=== PATIENT | female | born 1955 | race Caucasian/White ===

== ENCOUNTER 2024-07-01 19:20 | Emergency (ER) | payer MEDICARE, SELFPAY ==
[2024-07-01 19:22] VITALS: BP 142/72; PULSE 92; RESP 18; TEMP 36.1; O2SAT 95; BMI 28.5
[2024-07-01] MEDS: Diphth,Pertuss(Acell),Tet Vac 0.5 ML Vial IM (19:43)
[2024-07-01] MEDS: Lidocaine 1% (20 ml mdv) 20 ML Vial 10 ML INFILT (19:43)
--- NOTE | 2024-07-01 19:50 | RAD_ITS ---
PROCEDURE: HAND MIN 3 VIEWS 07/01/2024 REASON FOR EXAM: CRUSH INJURY, LACERATIONS; LACERATION TECHNIQUE: Three-view examination of each hand COMPARISON: None FINDINGS: No evidence of fracture. No foreign body. Soft tissue swelling is seen compatible with the patient's history of laceration. Please note ligamentous injury not excluded. RAD/Hand Min 3 Views IMPRESSION: No fracture or foreign body. If concern for ligamentous pathology, consider MR I Reading Location: [id number]
--- NOTE | 2024-07-01 19:50 | RAD_ITS ---
PROCEDURE: HAND MIN 3 VIEWS 07/01/2024 REASON FOR EXAM: CRUSH INJURY, LACERATIONS; LACERATION TECHNIQUE: Three-view examination of each hand COMPARISON: None FINDINGS: No evidence of fracture. No foreign body. Soft tissue swelling is seen compatible with the patient's history of laceration. Please note ligamentous injury not excluded. RAD/Hand Min 3 Views IMPRESSION: No fracture or foreign body. If concern for ligamentous pathology, consider MR I Reading Location: [id number]
--- NOTE | 2024-07-01 19:59 | EX.ED.GENINJ ---
HPI <Dr. Db Chiang DO - Last Filed: 07/02/24 00:32> History of Present Illness Chief Complaint: Laceration <DEJUAN Cheung - Last Filed: 07/01/24 21:42> Narrative Narrative: Patient presenting today due to multiple lacerations to her bilateral hands after she was taking a plastic trash bin outside to the curb when it fell backwards and landed on her hands, causing multiple finger lacerations. Her tetanus is not up-to-date. She denies any other injury. She is not on any blood thinners. She is right-handed. [facility], [facility] <Dr. Db Chiang DO - Last Filed: 07/02/24 00:32> [facility] Medical History High blood cholesterol Hypertension Home Medications ?Medication ?Instructions ?Recorded ?Last Taken ?Type cephalexin 500 mg capsule 500 mg PO TID 5 days #15 caps 07/01/24 Unknown Rx Allergy/AdvReac Type Severity Reaction Status Date / Time No Known Allergies Allergy Verified 07/01/24 19:21 Family History no significant family his Surgical History no surgical history Social History Smoking Status: Never smoker ROS <DEJUAN Cheung - Last Filed: 07/01/24 21:42> ROS ED Constitutional Constitutional ED: Denies chills or fever(s) Cardiovascular Cardiovascular: Denies chest pain Respiratory/Chest Respiratory/Chest: Denies dyspnea Musculoskeletal Musculoskeletal: Reports arthralgias Integumentary Reports laceration Neurologic Neurologic: Denies paresthesias EXAM <Dr. Db Chiang DO - Last Filed: 07/02/24 00:32> Physical Exam Const Vital Signs: 07/01/24 19:22 07/01/24 21:21 07/01/24 21:35 Temperature 97 F L 97 F L Temperature Source Temporal Pulse Rate 92 68 68 Respiratory Rate 18 16 16 Blood Pressure 142/72 H 142/72 H Blood Pressure Mean 95 95 Pulse Ox 95 98 98 Oxygen Delivery Method Room Air <DEJUAN Cheung Last Filed: 07/01/24 21:42> Physical Exam Const Vital Signs: 07/01/24 19:22 07/01/24 21:21 07/01/24 21:35 Temperature 97 F L 97 F L Temperature Source Temporal Pulse Rate 92 68 68 Respiratory Rate 18 16 16 Blood Pressure 142/72 H 142/72 H Blood Pressure Mean 95 95 Pulse Ox 95 98 98 Oxygen Delivery Method Room Air Positive well nourished, well developed and no apparent distress General Appearance ED: well developed HEENT Reports normocephalic and head/scalp atraumatic Mouth ED: Yes moist mucous membranes normal Eyes PERRL and EOMs intact bilaterally Neck full ROM and supple Chest Wall inspection of chest normal Resp normal respiratory effort and clear to auscultation bilaterally Cardio regular rate and regular rhythm Back/Spine normal ROM and normal to inspection Extremity normal to inspection and full ROM Extremity Narrative: 1.5 cm linear laceration to the right third dorsal finger at the level of the PIP joint, full flexion and extension of all 5 fingers of the right hand, bilateral radial pulse 2+, good cap refill, sensation intact to all digits of the bilateral hands. 2 cm full-thickness linear laceration to the left second digit, 1.5 cm full-thickness linear laceration to the left third digit third, and 0.5 cm full-thickness linear laceration to the left fourth digit, all of these lacerations are dorsal at the level of the PIP joint. There is a complete tendon laceration at the left second and third fingers, she is able to flex these fingers but not extend. Patient has abrasions to the left dorsal pinky and thumb as well as right thumb and index finger. Neuro oriented x3, CN's II-XII intact bilaterally, moves all extremities, no focal motor deficits and no sensory deficits noted Sensorium / Orientation: awake and alert Psych mental status grossly normal and thought process normal Skin Skin Narrative: See above. Otherwise no wounds or rashes noted PROC <DEJUAN Cheung - Last Filed: 07/01/24 21:42> Procedures Lacerations Laceration: Depth: Tendon Shape: Linear Prep: Chlorhexadine Laceration repair: Irrigated, Lidocaine and - (Digital block) Number of Sutures/Abad: 15 Suture Information: Simple and 4-0 Comment: Laceration anesthetized with 1% lidocaine, digital blocks performed to the right third finger and left second, third, and fourth digits. All wounds were copiously irrigated with saline and cleaned with chlorhexidine. Right third finger 1.5 cm linear laceration received three 4-0 Ethilon sutures. Left second finger has a 2 cm linear laceration that received six 4-0 Ethilon sutures, left third finger has a 1.5 cm laceration that received five 4-0 Ethilon sutures, left fourth finger has a 0.5 cm linear laceration that received one 4-0 Ethilon suture [facility] <Dr. Db Chiang, DO - Last Filed: 07/02/24 00:32> [facility] Radiography Diagnostic Testing: Clinical Impression(s) from Imaging Studies Hand X-Ray 07/01/24 19:50 IMPRESSION: No fracture or foreign body. If concern for ligamentous pathology, consider MRI Reading Location: [facility] Hand X-Ray 07/01/24 19:50 IMPRESSION: No fracture or foreign body. If concern for ligamentous pathology, consider MRI Reading Location: [facility] Treatment and Re-Evaluation Narrative: I have personally performed a face to face assessment of the patient and have reviewed the ROMEO Note. I performed a substantive portion of the visit including all aspects of the following. My gaytan findings include: History: Patient presents with multiple lacerations to bilateral hands. Patient states she was carrying a trash can when the lid flew back and hit the dorsum of her hands. Patient has lacerations to the left second, third, and fourth proximal phalanges and right third proximal phalanx. Patient is unable to extend the PIP joint of her left index and long fingers. Patient denies any paresthesias. Patient is unsure of her tetanus. Exam: Vital signs are stable. Patient is afebrile. Patient is in no acute distress. There are lacerations over the dorsal aspect of the left second, third, and fourth proximal phalanges as well as the right third proximal phalanx. There is a tendon laceration of the extensor tendon that is visualized over the left second and third digits. There are no foreign bodies visualized. Otherwise strength is 5/5 in flexion and extension of the MP, PIP, and DIP joints. Sensation was intact to light touch in all digits. Capillary refill was less than 2 seconds in all digits. Medical Decision Making: Differential diagnosis includes laceration, contusion, open fracture, and retained foreign body. X-rays of the bilateral hands will be obtained to assess for fracture and retained foreign body. Patient was given a tetanus booster. Patient was given a dose of Ancef. The wounds were closed by the ROMEO under my supervision. Bacitracin dressing was applied. Patient was given referral for plastic hand surgery. Patient is instructed to call tomorrow for an appointment. Patient was given a prescription for Keflex. Patient understood and was agreeable with the plan. All questions were answered. <DEJUAN Cheung - Last Filed: 07/01/24 21:42> [facility] MDM Narrative Medical decision making narrative: Patient presenting with multiple finger lacerations to her bilateral hands after a trash can fell backwards and landed on her hands while she was taking it to the curb. She has multiple finger lacerations, see physical exam. Tetanus updated here. She does have complete extensor tendon laceration at the level of the PIP joint to the left second and third fingers, she is otherwise neurovascularly intact. She was given a dose of IV Ancef here. X-ray of the bilateral hands obtained to assess for fracture and foreign body and are negative. I did speak with Dr. Cuba, given she has no open fracture, she can follow-up in the office, recommended she call tomorrow. I will place her on a course of Keflex. Lacerations were copiously irrigated with saline and repaired with sutures, she tolerated procedure well. See procedure note. Wounds were bandaged with bacitracin ointment. Strict return instructions were discussed with her. Patient discharged home in stable condition. Radiography X-Ray: Read by ED Physician Diagnostic Testing: Clinical Impression(s) from Imaging Studies Hand X-Ray 07/01/24 19:50 IMPRESSION: No fracture or foreign body. If concern for ligamentous pathology, consider MRI Reading Location: [facility] Hand X-Ray 07/01/24 19:50 IMPRESSION: No fracture or foreign body. If concern for ligamentous pathology, consider MRI Reading Location: [facility] Discharge Plan Triage Chief Complaint: Laceration ED Midlevel Provider: Navya Spann ED Provider: Db Chiang Dx/Rx/DC Orders Clinical Impression: Crushing injury of hand, right, Crushing injury of hand, left, Finger laceration, Extensor tendon laceration, finger, open wound Instructions: ED Crush Injury, Hand, ED Laceration, Hand: All Closures Prescriptions: New cephalexin 500 mg capsule 500 mg PO TID 5 Days Qty: 15 0RF Primary Care Provider: PodlogarKeerthi NP Referrals: Nasir Cuba MD [Med Staff - Active Staff] - 1 Day Podlogar,Keerthi GILBERT, HR ADVISOR-C [Primary Care Provider] - Activity Restrictions/Additional Instructions: Please call Dr. Cuba's office tomorrow to set up a follow-up appointment. Return for any signs of infection Print Language: Serbian Disposition Disposition: Home, Self Care Discharge Date/Time: 07/01/24 21:36
[2024-07-01] MEDS: Cefazolin 2 GM in Syringe IV (21:18)
[2024-07-01 21:21] VITALS: PULSE 68; RESP 16; O2SAT 98
[2024-07-01 21:35] VITALS: BP 142/72; PULSE 68; RESP 16; TEMP 36.1; O2SAT 98
== END 2024-07-01 21:36 | disposition home or self-care (01) ==
PROVIDERS: Emergency Provider Emergency Medicine; PCP Nurse Practitioner Primary Care; Visit Provider Emergency Medicine
DX: S66.321A Laceration of extensor muscle, fascia and tendon of left index finger at wrist and hand level, initial encounter (principal); I10 Essential (primary) hypertension; E78.00 Pure hypercholesterolemia, unspecified; W26.8XXA Contact with other sharp object(s), not elsewhere classified, initial encounter; Y93.89 Activity, other specified; Z23 Encounter for immunization; S66.323A Laceration of extensor muscle, fascia and tendon of left middle finger at wrist and hand level, initial encounter; S61.212A Laceration without foreign body of right middle finger without damage to nail, initial encounter; S61.215A Laceration without foreign body of left ring finger without damage to nail, initial encounter
CPT/HCPCS: 12002; 73130; 90715; 96374; 99284; A4216

== ENCOUNTER 2024-07-11 11:14 | Day surgery (SDC) | payer MEDICARE, SELFPAY ==
[2024-07-11] VITALS (7 sets, daily range): BP systolic 121–135; BP diastolic 55–74; PULSE 51–81; RESP 14–16; TEMP 35.8–36.9; O2SAT 94–98; BMI 26.6
--- NOTE | 2024-07-11 11:27 | PCM.PRE.AN2 ---
ASA Classification* ASA Classification ASA Classification: 2 Assessment & Plan Anesthesia* Anesthesia Assessment Anesthesia Assessment: Discussed sedation and/or anesthesia options, risks, benefits, and alternatives with patient/parents/legal guardian/POA. Questions invited. The patient/parents/legal guardian/POA seems to understand and agrees to proceed with anesthesia plan. Reviewed the physical assessment, medical history, allergy history and patient home medications list prior to surgery/procedure/anesthetic and documented any changes. Performed airway and anesthesia risk assessments. 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 When Was Last Pacemaker Check QUESTION #4 FULL TEXT: You/Your Family Experience fever (hyperthermia) with Anesthesia Last Oral Intake Last Oral intake: Last Oral Intake NPO since Meds taken in AM with sips of water? Meds patient instructed to take am of surgery PONV PONV - sales solutions representative: PONV - sales solutions representative Female Yes 07/03/24 11:47 HX of Motion Sickness No 07/03/24 11:47 HX of N/V After Surgery No 07/03/24 11:47 Non-Smoker Yes 07/03/24 11:47 Duration of Surgery greater Yes 07/03/24 11:47 than 60 minutes Number of Risk Factors 3 07/03/24 11:47 PONV Score Moderate Risk 07/03/24 11:47 Height & Weight Height & Weight: Anesthesia: Height & Weight Height 5 ft 6 in 07/01/24 19:22 Respiratory Assessment Respiratory Assessment - sales solutions representative: Respiratory Tract Infection Hx - sales solutions representative Hx Respiratory Tract Infection No 07/03/24 11:47 STOP Sleep Apnea STOP Sleep Apnea - sales solutions representative: STOP Sleep Apnea - sales solutions representative Hx Hypertension Yes: CONTROLLED WITH MEDS 07/03/24 11:47 Hx Sleep Apnea No 07/03/24 11:47 CPAP BIPAP Do you snore loudly (louder No 07/03/24 11:47 than talking or can be heard Do you often feel tired/ No 07/03/24 11:47 fatigued/ sleepy during daytime? Has anyone observed you stop No 07/03/24 11:47 breathing during sleep? STOP Results Negative 07/03/24 11:47 QUESTION #5 FULL TEXT : Do you snore loudly (louder than talking or can be heard through closed doors)? Tobacco Use History Tobacco Use History - sales solutions representative: Tobacco Use History - sales solutions representative Tobacco Use Smoking Status Never smoker 07/03/24 15:05 Hx Tobacco Use No 07/03/24 11:47 Years Smoking Packs Smoked per Day Smoking Cessation Date was within the last 15 years Hx Smoking Cessation Date Hx Smoking Cessation Counseling Hematologic Medial History Hematologic Hx - sales solutions representative: Hematologic Medical Hx - epic director Hx of Blood Transfusion No 07/03/24 11:47 Hx of Transfusion in last 3 No 07/03/24 11:47 Months Date of Last Transfusion (if within last 3 months) Ever experience any problems No 07/03/24 11:47 with transfusion(s)? Specify any problems Hx of Preganancy in last 3 No 07/03/24 11:47 Months Nurse Filling Out Transfusion DSCHRIBER 07/03/24 11:47 & Questions: Date: 07/03/24 07/03/24 11:47 Time: 11:48 07/03/24 11:47 Patient unable to answer at this time (ie. confused, unrespo /Reproduction History /Reproductive History - sales solutions representative: /Reproductive Hx- sales solutions representative Hx Now No 07/03/24 11:47 Gestational Age (in weeks): EDC: Hx Hx Para Hx Section SAB No 07/03/24 11:47 Active Medications Active Medications: Current Medications Generic Name Dose Route Start Last Admin Trade Name Freq PRN Reason Stop Dose Admin Cefazolin Sodium 2 gm/ N/A 20 mls @ 400 mls/hr 07/11/24 13:00 IV 07/11/24 13:02 PREOP [facility] Medical History Anemia Wears glasses Alcohol use Diabetes Thyroid disease High cholesterol History of ulceration Non-smoker Leg cramps Hx of fracture of arm Hypertension Home Medications ?Medication ?Instructions ?Recorded ?Last Taken ?Type cephalexin 500 mg capsule 500 mg PO TID 5 days #15 caps 07/01/24 Unknown Rx amlodipine 10 mg tablet 10 mg PO DAILY 07/03/24 Unknown History atorvastatin 20 mg tablet 20 mg PO QHS 07/03/24 Unknown History hydrochlorothiazide 50 mg tablet 50 mg PO DAILY 07/03/24 Unknown History levothyroxine 50 mcg tablet 50 mcg PO DAILY 07/03/24 Unknown History Allergy/AdvReac Type Severity Reaction Status Date / Time No Known Allergies Allergy Verified 07/03/24 14:58 Family History Father Anemia Colon cancer Respiratory disease Mother Blood clot in leg Heart disease Cancer Hypertension Sister Breast cancer Surgical History Hx of colonoscopy History of dental surgery Hx of sinus surgery Hx of hysterectomy Social History Smoking Status: Never smoker alcohol intake: current substance use type: does not use additional social history: pt denies smoking, denies history of blood clots. pt denies aspirin and uses ibuprofen as needed. Review of Systems (Anesthesia) ROS Narrative System reviewed and no additional complaints, except as documented.
[2024-07-11 12:10] LABS: Bedside Glucose 108 mg/dL (74-106)
--- NOTE | 2024-07-11 12:22 | HP.PCM.SX_ITS ---
HPI - General HPI Narrative Details: HPI from 03 July 2024: Erica Mak is a delightful 69-year-old female with past medical history of hypertension and hypothyroidism who presents as a follow-up from the emergency department following a crush injury with possible extensor tendon lacerations to the left index and long fingers on 02 July 2024. Patient reports that she crushed her fingers on a trash can lid at her property. She reports sharp severe pain in the bilateral hands worsened by movements and improved with rest and elevation. Her wounds were irrigated and washed out in the emergency department and closed by an advanced practice provider who reported that the index and long finger on the left side had potential extensor tendon lacerations. Patient is not a smoker. No evidence of any fractures on the x-rays of the bilateral hands. No foreign bodies demonstrated either 06 July 2024: Patient doing well at home with twice daily dressing changes using Xeroform. She reports interval signs of healing and improved pain. Current Encounter (DATE OF SURGERY H&P UPDATE): I saw and examined the patient this morning in pre-operative holding. We discussed risks and benefits of today's surgery and they would like to proceed. NO CHANGE in health history since last seen and evaluated EXCEPT she has had interval healing of the soft tissue and no tissue necrosis. Ready to proceed with surgery. [facility] Medical History Anemia Wears glasses Alcohol use Diabetes Thyroid disease High cholesterol History of ulceration Non-smoker Leg cramps Hx of fracture of arm Hypertension Home Medications ?Medication ?Instructions ?Recorded ?Last Taken ?Type cephalexin 500 mg capsule 500 mg PO TID 5 days #15 cap s 07/01/24 Unknown Rx amlodipine 10 mg tablet 10 mg PO DAILY 07/03/24 Unkn own History atorvastatin 20 mg tablet 20 mg PO QHS 07/03/24 Unknow n History hydrochlorothiazide 50 mg tablet 50 mg PO DAILY Unknown History levothyroxine 50 mcg tablet 50 mcg PO DAILY 07/03/24 U nknown History oxycodone 5 mg tablet 5 mg PO Q12H PRN pain 5 days #10 07/11/24 Unknown Rx tabs Allergy/AdvReac Type Severity Reaction Status Date / Time No Known Allergies Allergy Verified 07/11/24 11:33 Family History Father Anemia Colon cancer Respiratory disease Mother Blood clot in leg Heart disease Cancer Hypertension Sister Breast cancer Surgical History Hx of colonoscopy History of dental surgery Hx of sinus surgery Hx of hysterectomy Social History Smoking Status: Never smoker alcohol intake: current substance use type: does not use additional social history: pt denies smoking, denies history of blood clots. pt denies aspirin and uses ibuprofen as needed. Vital Signs Vital Signs Vital Signs: 07/11/24 11:37 07/11/24 11:37 Temperature 98.5 F Temperature Source Temporal Pulse Rate 81 Respiratory Rate 16 Respiratory Pattern Normal Blood Pressure 124/68 H Blood Pressure Mean 86 Blood Pressure Source Monitor Blood Pressure Position Semi-Fowlers Blood Pressure Location Right Arm Pulse Ox 95 Oxygen Delivery Method Room Air Weight Weight: 165 lb 5.547 oz Body Mass Index (BMI) 26.6 Physical Exam Narrative Improved participation in exam today as pain improved. Right upper Extremity Inspection: Abrasions and small lacerations on the dorsum right hand fingers that are well healing and approximated. No signs of infection (no fluid collections or induration). Palpation: Deferred Motor: Able to bend and extend all MP, PIP, and DIP joints. Able to hyperextend from neutral position. Sensory: Intact to light touch on the radial and ulnar borders. Vascular: Finger tips are warm and well perfused with <2 second capillary refill. 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 Positive Graham's test for the left long finger and the index (correction to previous exam or change) finger today. There are lacerations over extensor tendon zone 3/4 of the index and long fingers as well as abrasions on the other fingers on the dorsum. Soft tissue quality is improving over the index and the long finger dorsum. Motor: Able to bend and extend all MP, PIP, and DIP joints, except she is unable to hyperextend her left long finger from a neutral position. She is able to hyperextend her index finger. Sensory: Intact to light touch on the radial and ulnar borders. Vascular: Finger tips are warm and well perfused with <2 second capillary refill. Results Lab / Micro Data Labs: Laboratory Results - last 24 hr 07/11/24 11:45: POC Glucose 108 H Assessment & Plan Assessment/Plan (1) Crushing injury of hand, left: (2) Crushing injury of hand, right: (3) Extensor tendon laceration, finger, open wound: PLAN: Plan Plan from 03 July 2024: Concern from [facility] for index finger extensor tendon laceration. On my exam there is no deficit of the left index finger, but on the x-ray of the index finger appeared to be in a boutonniere position (?). I will reexamine the patient in clinic at the next appointment for the index finger, but this may be a partial laceration. I discussed with the patient risks, benefits, and alternatives to exploration and possible repair of the index finger flexor tendon if it has a partial tear. She is going to think about her options, but is leaning towards not exploring this digit and letting it just heal since there is no deficit on exam. PLAN FROM 06 July 2024: I was able to get a more thorough examination as pain was improved today. I do think she has a positive Graham's test on the index finger. I think she has zone 3/4 extensor tendon lacerations to the index and long finger. I talked her about sequelae of long-term boutonniere deformity of the tendons or not repaired. I talked to her again about the quality of the soft tissue, which is continuing to improve. We talked about high-protein intake and nutrition for wound healing. She is not diabetic and not a smoker, so this should help, she did have a severe crush injury. I also talked to her about potential need for reconstruction with dermal substitutes (Integra), as well as options for reconstruction if tendon repair/reconstruction or bone becomes exposed and she needs soft tissue coverage over the vital structures of the finger. These reconstructive options are limited and a local sense because of the crush injury to the adjacent digits. Options would be groin flap versus posterior interosseous artery swager operator flap (free tissue transfer). While we are not anywhere close to needing these options at this point, operating on this fragile soft tissue may lead to wound problems. This is a risk. Patient understands the risk of wound problems with subsequent operations. Will plan to reexamine the wounds again in preoperative holding on Tuesday, 11 July 2024, at which time we will consider reconstruction with tendon repair versus further deferment of reconstruction based on the quality of the soft tissue. Furthermore I talked to the patient about the risks, benefits, and alternatives of surgery, including the above-noted wound and wound care needs versus complicated reconstructions. I talked to her about the risks of infection, bleeding, stiffness of the hand and fingers, need for occupational therapy postoperatively, as well as potential risk of anesthesia. I talked to her about damage to surrounding structures and need for further incisions to explore the wounds. I talked her about poor scarring. She understands the risk of tendon rerupture and failed tendon repair and failure to obtain the desired result. Tentatively scheduling for extensor tendon repair on 11 July 2024 for the index and long fingers. Patient will be examined in preoperative holding to check on the quality of the soft tissue (she has been informed of this plan and understands that and is in agreement). Patient was placed in Xeroform dressings (to be continued twice daily). She will finish her course of antibiotics (given 5 day course of Doxycycline while healing - injury involved dirty garbage bin). INTERVAL H&P PLAN, DATE OF SURGERY: We will proceed with surgery today. The soft tissue has healed enough where I think it is reasonable to attempt extensor tendon repair. Patient understands the risks of wound breakdown over the repair and potential need for repeat surgeries and reconstruction and wound care. She understands the risks of failure of repair of the extensor tendons, especially in the setting of soft tissue crush injury and potential for wounds. She would like to proceed with surgery today. I talked to the patient also about the general risks of surgery, including bleeding, infection, damage to surrounding structures, poor scaring, surgical site dehiscence and wound formation, need for wound care, need for repeat operations, failure to obtain the desired result, DVT/PE, and the risks of anesthesia including , including stroke (from low blood pressure/ischemia or clot). We will attempt to mitigate risk of anesthesia by performing the procedure under sedation and local. The benefits and alternatives of this surgery were also discussed. Discussed possible use of suture anchors and possibility of infection/hardware failure/need for removal/anchors. Discussed possible need for local soft tissue rearrangement (local dorsal flap) and risks of failure/need for debridement/wound care. All of their questions were answered, and they agreed to proceed with surgery.
--- NOTE | 2024-07-11 13:11 | OP.PCM_ITS ---
Problems Associated Problem List Diagnoses (1) Central slip extensor tendon injury (tavoniere): Operative Report (Standard) Operative Information Date of Procedure: 07/11/24 Pre-Operative Diagnosis: Left index and long finger crush injuries with extensor tendon lacerations, zone 4 Post-Operative Diagnosis: Same Surgery/Procedure Performed: 1) repair of left index finger extensor tendon laceration, zone 4 (CPT 40838) 2) irrigation and debridement, left index finger, including necrotic fat/subcutaneous tissues 1 x 2 cm (36695) operating room registered nurse: Yes Spouting Installer: Erik Lemus Tasks completed by first sampler: Retracting Type of Anesthesia: MAC/Supplemental (10 cc of 50-50 mixture of 1% lidocaine and 0.25% Marcaine) RN Documented Start/Stop Times: Operation Date: 07/11/24 13:00 Case Time Into Pre-Op 07/11/24 11:20 Out of Pre-Op 07/11/24 13:11 Anesthesia Start 07/11/24 13:15 Into Room 07/11/24 13:15 Procedure Start 07/11/24 13:33 Procedure End 07/11/24 14:42 Out of Room 07/11/24 14:45 Anesthesia End 07/11/24 14:46 Into Recovery 07/11/24 14:48 Out of Recovery 07/11/24 15:08 Into Phase II Recovery 07/11/24 15:09 Procedure Start Time: 13:33 Procedure Stop Time: 14:42 Select all DRAINS/GRAFTS/IMPLANTS that apply: None Estimated Blood Loss: Minimal Specimen collected: No Description of surgery: Indications: Erica Means is a delightful 69-year-old female who had a crush injury to her bilateral hands on 01 July 2024. There is concern by the emergency department for extensor tendon lacerations of the index and long fingers and therefore she was referred to my clinic. Repair of the extensor tendon lacerations was delayed in the setting of significant soft tissue injury and need for better healing/tissue demarcation before surgical repair. Today in preoperative holding I examined the patient and there was improved soft tissue viability over the areas of planned repair. Patient understood the risks, benefits, and alternatives to exploration and repair of the extensor tendons in the operating room today and elected to proceed. He understands there is risk of wound breakdown and problems with the extensor tendon repairs. Procedure details: Patient was correctly identified in preoperative holding and marked. She is taken back to the operating room where she was administered sedation and local anesthesia as noted above. All proper timeouts were performed and she was prepped and draped in sterile fashion. The left index and long finger dorsal lacerations were opened with tenotomy scissors and the sutures were removed. The wounds were irrigated with 3 L normal saline and the tourniquet was inflated to 250 mmHg on the arm (total tourniquet time 45 minutes). The cut ends of the extensor tendons were identified on the index finger. There was minimal tension for the index finger extensor tendon laceration in zone 4 and the flat tendon was repaired with 4 core strands of 3-0 Ethibond suture via 2 different [id number] sutures. The long finger extensor tendon was shredded and there was significant fibrinous exudate and necrotic fat within the wound from the crush injury. This was excised with a 15 blade scalpel and a tenotomy scissor and cultured. The wound was irrigated further with Irrisept and more saline. Given the extent of debris and concern for potential brewing infection , reconstruction with a suture anchor was deferred at this time. The incisions were closed with interrupted 3- 0 nylon suture. Patient tolerated the procedure well. Xeroform and a plaster volar blocking splint was applied with the fingers in full extension. Postoperative plan: Follow-up on Tuesday, 17 July 2024 for wound check. Follow-up cultures in the meantime. Continue volar blocking splint with fingers in extension. Anticipate reconstruction when wound is exhibit cleaner next week with suture anchor and use of a lateral band for the long finger central slip reconstruction. Surgical Findings: * Laceration of the index finger extensor tendon zone 4 (approximately 80% of the tendon was lacerated, but able to approximate the edges and there was approximately 1 cm of distal stump tendon) * Completely avulsed central slip with 1 cm gap secondary to crushed and shredded EDC tendon. * Both lateral bands were intact on the long finger Complications Complications: No
[2024-07-11] MEDS: Cefazolin 2 GM in Syringe IV (13:15)
[2024-07-11] MEDS: Bupivacaine 0.25% 30 ML Vial (13:41)
[2024-07-11] MEDS: Lidocaine 1% (30 ml sdv) 30 ML Vial (13:41)
--- NOTE | 2024-07-11 14:39 | PCM.POST.ANE ---
Anesthesia: Postop Eval I Current Vital Signs Temperature: 97.3 F Pulse Rate: 62 Blood Pressure: 121/74 Respiratory Rate: 14 Pulse Ox: 98 Oxygen Delivery Method: Room Air Assessment Airway patent: Yes Spontaneous unlabored respirations: Yes Mental status: Awake nausea: No Vomiting: No Anesthesia Complication: No Fluid Hydration Crystalloid volume administer (ml): 1,000 Total IV fluid infused: 1,000 Progress Note Anesthesia document: Postop Eval 1 completed: Yes
--- NOTE | 2024-07-11 15:04 | POSTOPAN2_ITS ---
Anesthesia Postop Eval I Sum Postop Eval Completion status Anesthesia document: Postop Eval 1 completed: Yes Anesthesia Postop Eval I Summary Anesthesia Postop Eval I Summary: Anesthesia Postop Eval I: Assessment Summary Airway patent Yes 07/11/24 14:44 PEDIATRIC SPEECH LANGUAGE PATHOLOGIST.HBARR Spontaneous unlabored Yes 07/11/24 14:44 PEDIATRIC SPEECH LANGUAGE PATHOLOGIST.HBARR respirations Mental status Awake 07/11/24 14:44 PEDIATRIC SPEECH LANGUAGE PATHOLOGIST.HBARR nausea No 07/11/24 14:44 PEDIATRIC SPEECH LANGUAGE PATHOLOGIST.HBARR Vomiting No 07/11/24 14:44 PEDIATRIC SPEECH LANGUAGE PATHOLOGIST.HBARR Anesthesia Postop Eval I: Fluid Summary Crystalloid volume administer 1,000 07/11/24 14:44 PEDIATRIC SPEECH LANGUAGE PATHOLOGIST.HBARR (ml) Colloids volume administered ( ml) Blood Product volume administered (ml) Total IV fluid infused 1,000 07/11/24 14:44 PEDIATRIC SPEECH LANGUAGE PATHOLOGIST.HBARR Anesthesia Postop Eval I: Summary Notes Anesthesia Complication No 07/11/24 14:44 PEDIATRIC SPEECH LANGUAGE PATHOLOGIST.HBARR Anesthesia Complication Comment: Post-operative progress note Anesthesia: Postop Eval II Evaluation Mental status: Awake Pain Level: 0 nausea: No Vomiting: No
--- NOTE | 2024-07-11 15:04 | PCM.POSTANE2 ---
Anesthesia Postop Eval I Sum Postop Eval Completion status Anesthesia document: Postop Eval 1 completed: Yes Anesthesia Postop Eval I Summary Anesthesia Postop Eval I Summary: Anesthesia Postop Eval I: Assessment Summary Airway patent Yes 07/11/24 14:44 CORPORATE ETHICS OFFICER.HBARR Spontaneous unlabored Yes 07/11/24 14:44 CORPORATE ETHICS OFFICER.HBARR respirations Mental status Awake 07/11/24 14:44 CORPORATE ETHICS OFFICER.HBARR nausea No 07/11/24 14:44 CORPORATE ETHICS OFFICER.HBARR Vomiting No 07/11/24 14:44 CORPORATE ETHICS OFFICER.HBARR Anesthesia Postop Eval I: Fluid Summary Crystalloid volume administer 1,000 07/11/24 14:44 CORPORATE ETHICS OFFICER.HBARR (ml) Colloids volume administered ( ml) Blood Product volume administered (ml) Total IV fluid infused 1,000 07/11/24 14:44 CORPORATE ETHICS OFFICER.HBARR Anesthesia Postop Eval I: Summary Notes Anesthesia Complication No 07/11/24 14:44 CORPORATE ETHICS OFFICER.HBARR Anesthesia Complication Comment: Post-operative progress note Anesthesia: Postop Eval II Evaluation Mental status: Awake Pain Level: 0 nausea: No Vomiting: No
--- NOTE | 2024-07-18 08:00 | PCM.HP.STD ---
HPI - General HPI Narrative SULEMA TIERNEY, is a 69 F who presents with long finger central slip avulsion. Presents today for repair. Current Encounter (DATE OF SURGERY H&P UPDATE): I saw and examined the patient this morning in pre-operative holding. We discussed risks and benefits of today's surgery and they would like to proceed. NO CHANGE in health history since last seen and evaluated. Ready to proceed with surgery. [facility] Medical History Anemia Wears glasses Alcohol use Diabetes Thyroid disease High cholesterol History of ulceration Non-smoker Leg cramps Hx of fracture of arm Hypertension Home Medications ?Medication ?Instructions ?Recorded ?Last Taken ?Type amlodipine 10 mg tablet 10 mg PO DAILY 07/03/24 07/18/24 05:30 History atorvastatin 20 mg tablet 20 mg PO QHS 07/03/24 Unknown History hydrochlorothiazide 50 mg tablet 50 mg PO DAILY 07/03/24 Unknown History levothyroxine 50 mcg tablet 50 mcg PO DAILY 07/03/24 Unknown History oxycodone 5 mg tablet 5 mg PO Q12H PRN pain 5 days #10 07/11/24 Unknown Rx tabs Allergy/AdvReac Type Severity Reaction Status Date / Time No Known Allergies Allergy Verified 07/18/24 06:55 Family History Father Anemia Colon cancer Respiratory disease Mother Blood clot in leg Heart disease Cancer Hypertension Sister Breast cancer Surgical History Hx of colonoscopy History of dental surgery Hx of sinus surgery Hx of hysterectomy Social History Smoking Status: Never smoker alcohol intake: current substance use type: does not use additional social history: pt denies smoking, denies history of blood clots. pt denies aspirin and uses ibuprofen as needed. Vital Signs Vital Signs Vital Signs: Weight Weight: 165 lb 5.547 oz Body Mass Index (BMI) 26.6 Physical Exam Narrative Splint in place Long finger marked Assessment & Plan Assessment/Plan (1) Crushing injury of hand, left: (2) Crushing injury of hand, right: (3) Extensor tendon laceration, finger, open wound: PLAN: Plan INTERVAL H&P PLAN, DATE OF SURGERY: We will proceed with surgery today. I talked the patient extensively about central slip reconstruction. I talked to her about various procedures including the snow procedure with EDC tendon sharing (flipping over EDC tendon slip and reconstructing the central slip with a suture anchor). I talked her about hardware failure, infection, failure to obtain the desired result (improvement of the boutonniere deformity) as well as stiffness and inability to flex her fingers as well (need for therapy). She understands that reconstruction could inhibit finger flexion. I also talked to her about procedures with some more risks which may have to be performed including lateral band shearing procedures to reconstruct the central slip, although this will be a secondary option because this will require a distal incision and given the poor quality of soft tissue from the initial injury, the safer of the options is to make only one additional incision proximally. Furthermore we discussed the risks of surgery including including bleeding, infection, damage to surrounding structures, poor scaring, surgical site dehiscence and wound formation, need for wound care, need for repeat operations including reconstructive surgeries for soft tissue coverage, failure to obtain the desired result and repair failure, stiffness, postoperative protocol with joint pinned (which could lead to severe PIP joint stiffness), DVT/PE, and the risks of anesthesia including , including stroke (from low blood pressure/ischemia or clot). The benefits and alternatives of this surgery were also discussed. All of their questions were answered, and they agreed to proceed with surgery.
== END 2024-07-11 16:13 | disposition home or self-care (01) ==
LOC: SDC 11:15 → AC 11:16
PROVIDERS: PCP Nurse Practitioner Primary Care; Referring Provider Surgery Plastic and Reconstructive Surgery; Visit Provider Surgery Plastic and Reconstructive Surgery
PROC: (CPT 26418; principal; 2024-07-11 12:45)
DX: S66.321A Laceration of extensor muscle, fascia and tendon of left index finger at wrist and hand level, initial encounter (principal); S66.323A Laceration of extensor muscle, fascia and tendon of left middle finger at wrist and hand level, initial encounter; S67.191A Crushing injury of left index finger, initial encounter; S67.193A Crushing injury of left middle finger, initial encounter; I10 Essential (primary) hypertension; E03.9 Hypothyroidism, unspecified; E78.00 Pure hypercholesterolemia, unspecified; W23.0XXA Caught, crushed, jammed, or pinched between moving objects, initial encounter; Z79.890 Hormone replacement therapy; Z79.899 Other long term (current) drug therapy
CPT/HCPCS: 26418; 11042; 01810; 82962; 87015; 87070; 87075; 87102; 87116; 87176; 87205; 87206; A4216; J2405

== ENCOUNTER 2024-07-18 06:12 | Day surgery (SDC) | payer MEDICARE, SELFPAY ==
[2024-07-18] VITALS (10 sets, daily range): BP systolic 96–114; BP diastolic 49–54; PULSE 51–62; RESP 10–16; TEMP 36.5–36.6; O2SAT 92–97; BMI 27.3
--- NOTE | 2024-07-18 06:12 | HP_ITS ---
HPI Narrative SULEMA TIERNEY, is a 69 F who presents with long finger central slip avulsion. Presents today for repair. Current Encounter (DATE OF SURGERY H&P UPDATE): I saw and examined the patient this morning in pre-operative holding. We discussed risks and benefits of today's surgery and they would like to proceed. NO CHANGE in health history since last seen and evaluated. Ready to proceed with surgery. [facility] Medical History Anemia Wears glasses Alcohol use Diabetes Thyroid disease High cholesterol History of ulceration Non-smoker Leg cramps Hx of fracture of arm Hypertension Home Medications ?Medication ?Instructions ?Recorded ?Last Taken ?Type amlodipine 10 mg tablet 10 mg PO DAILY 07/03/24 07/18/24 05:30 H istory atorvastatin 20 mg tablet 20 mg PO QHS 07/03/24 Unknown History hydrochlorothiazide 50 mg tablet 50 mg PO DAILY 07/03/24 Unknown History levothyroxine 50 mcg tablet 50 mcg PO DAILY 07/03/24 Unknown History oxycodone 5 mg tablet 5 mg PO Q12H PRN pain 5 days #10 5 Unknown Rx tabs Allergy/AdvReac Type Severity Reaction Status Date / Time No Known Allergies Allergy Verified 07/18/24 06:55 Family History Father Anemia Colon cancer Respiratory diseaseMother Blood clot in leg Heart disease Cancer HypertensionSister Breast cancer Surgical History Hx of colonoscopy History of dental surgery Hx of sinus surgery Hx of hysterectomy Social History Smoking Status: Never smoker alcohol intake: current substance use type: does not use additional social history: pt denies smoking, denies history of blood clots. pt denies aspirin and uses ibuprofen as needed. Vital Signs Vital Signs Vital Signs: Weight Weight: 165 lb 5.547 oz Body Mass Index (BMI) 26.6 Physical Exam Narrative Splint in place Long finger marked Assessment & Plan Assessment/Plan (1) Crushing injury of hand, left: (2) Crushing injury of hand, right: (3) Extensor tendon laceration, finger, open wound: PLAN: Plan INTERVAL H&P PLAN, DATE OF SURGERY: We will proceed with surgery today. I talked the patient extensively about central slip reconstruction. I talked to her about various procedures including the snow procedure with EDC tendon sharing (flipping over EDC tendon slip and reconstructing the central slip with a suture anchor). I talked her about hardware failure, infection, failure to obtain the desired result (improvement of the boutonniere deformity) as well as stiffness and inability to flex her fingers as well (need for therapy). She understands that reconstruction could inhibit finger flexion. I also talked to her about procedures with some more risks which may have to be performed including lateral band shearing procedures to reconstruct the central slip, although this will be a secondary option because this will require a distal incision and given the poor quality of soft tissue from the initial injury, the safer of the options is to make only one additional incision proximally. Furthermore we discussed the risks of surgery including including bleeding, infection, damage to surrounding structures, poor scaring, surgical site dehiscence and wound formation, need for wound care, need for repeat operations including reconstructive surgeries for soft tissue coverage, failure to obtain the desired result and repair failure, stiffness, postoperative protocol with joint pinned (which could lead to severe PIP joint stiffness), DVT/PE, and the risks of anesthesia including , including stroke (from low blood pressure/ischemia or clot). The benefits and alternatives of this surgery were also discussed. All of their questions were answered, and they agreed to proceed with surgery.
--- NOTE | 2024-07-18 07:43 | PCM.PRE.AN2 ---
ASA Classification* ASA Classification ASA Classification: 2 Assessment & Plan Anesthesia* Anesthesia Assessment Anesthesia Assessment: Discussed sedation and/or anesthesia options, risks, benefits, and alternatives with patient/parents/legal guardian/POA. Questions invited. The patient/parents/legal guardian/POA seems to understand and agrees to proceed with anesthesia plan. Reviewed the physical assessment, medical history, allergy history and patient home medications list prior to surgery/procedure/anesthetic and documented any changes. Performed airway and anesthesia risk assessments. 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 When Was Last Pacemaker Check QUESTION #4 FULL TEXT: You/Your Family Experience fever (hyperthermia) with Anesthesia Last Oral Intake Last Oral intake: Last Oral Intake NPO since 22:00 07/18/24 06:58 Meds taken in AM with sips of Yes 07/18/24 06:58 water? Meds patient instructed to take am of surgery PONV PONV - facsimile machine operator: PONV - facsimile machine operator Female Yes 07/16/24 13:36 HX of Motion Sickness No 07/16/24 13:36 HX of N/V After Surgery No 07/16/24 13:36 Non-Smoker Yes 07/16/24 13:36 Duration of Surgery greater No 07/16/24 13:36 than 60 minutes Number of Risk Factors 2 07/16/24 13:36 PONV Score Moderate Risk 07/16/24 13:36 Height & Weight Height & Weight: Anesthesia: Height & Weight Height 5 ft 6 in 07/18/24 06:58 Weight: 77 kg 07/18/24 06:58 Body Mass Index (BMI) 27.3 07/18/24 06:58 Respiratory Assessment Respiratory Assessment - facsimile machine operator: Respiratory Tract Infection Hx - facsimile machine operator Hx Respiratory Tract Infection No 07/16/24 13:36 STOP Sleep Apnea STOP Sleep Apnea - facsimile machine operator: STOP Sleep Apnea - facsimile machine operator Hx Hypertension Yes 07/16/24 13:36 Hx Sleep Apnea No 07/16/24 13:36 CPAP BIPAP Do you snore loudly (louder No 07/16/24 13:36 than talking or can be heard Do you often feel tired/ No 07/16/24 13:36 fatigued/ sleepy during daytime? Has anyone observed you stop No 07/16/24 13:36 breathing during sleep? STOP Results Negative 07/16/24 13:36 QUESTION #5 FULL TEXT : Do you snore loudly (louder than talking or can be heard through closed doors)? 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 Specify any problems Hx of Preganancy in last 3 No 07/16/24 13:36 Months Nurse Filling Out Transfusion JZOLLINGE 07/16/24 13:36 & Questions: Date: 07/16/24 07/16/24 13:36 Time: 13:38 07/16/24 13:36 Patient unable to answer at this time (ie. confused, unrespo /Reproduction History /Reproductive History - facsimile machine operator: /Reproductive Hx- facsimile machine operator Hx Now No 07/16/24 13:36 Gestational Age (in weeks): EDC: Hx Hx Para Hx Section SAB No 07/16/24 13:36 Active Medications Active Medications: Current Medications Generic Name Dose Route Start Last Admin Trade Name Freq PRN Reason Stop Dose Admin Cefazolin Sodium 2 gm/ N/A 20 mls @ 400 mls/hr 07/18/24 08:00 IV 07/18/24 08:02 PREOP ONE PFS Medical History Anemia Wears glasses Alcohol use Diabetes Thyroid disease High cholesterol History of ulceration Non-smoker Leg cramps Hx of fracture of arm Hypertension Home Medications ?Medication ?Instructions ?Recorded ?Last Taken ?Type amlodipine 10 mg tablet 10 mg PO DAILY 07/03/24 07/18/24 05:30 History atorvastatin 20 mg tablet 20 mg PO QHS 07/03/24 Unknown History hydrochlorothiazide 50 mg tablet 50 mg PO DAILY 07/03/24 Unknown History levothyroxine 50 mcg tablet 50 mcg PO DAILY 07/03/24 Unknown History oxycodone 5 mg tablet 5 mg PO Q12H PRN pain 5 days #10 07/11/24 Unknown Rx tabs Allergy/AdvReac Type Severity Reaction Status Date / Time No Known Allergies Allergy Verified 07/18/24 06:55 Family History Father Anemia Colon cancer Respiratory disease Mother Blood clot in leg Heart disease Cancer Hypertension Sister Breast cancer Surgical History Hx of colonoscopy History of dental surgery Hx of sinus surgery Hx of hysterectomy Social History Smoking Status: Never smoker alcohol intake: current substance use type: does not use additional social history: pt denies smoking, denies history of blood clots. pt denies aspirin and uses ibuprofen as needed. Review of Systems (Anesthesia) ROS Narrative System reviewed and no additional complaints, except as documented.
[2024-07-18] MEDS: Cefazolin 2 GM in Syringe IV (08:23)
--- NOTE | 2024-07-18 08:40 | RAD_ITS ---
PROCEDURE: FINGER(S) MIN 2 VIEWS 07/18/2024 REASON FOR EXAM: CENTRAL SLIP REPAIR LONG FINGER TECHNIQUE: 6 intraoperative images of the left 3rd digit were provided. COMPARISON: Left hand x-rays performed on 07/01/2024. FINDINGS: Limited intraoperative fluoroscopic images of the left 3rd digit were provided. This demonstrates surgical pain overlying and within the 3rd digit. A tiny surgical screw is noted at the base of the 3rd distal phalanx. Please see dictation by the Surgical Services. RAD/Finger(s) Min 2 Views IMPRESSION: Please see dictation by the surgical Services. Reading Location: [id number]
[2024-07-18] MEDS: Bupivacaine 0.25% 30 ML Vial (08:50)
[2024-07-18] MEDS: Lidocaine 1% (30 ml sdv) 30 ML Vial (08:50)
[2024-07-18] MEDS: Lidocaine 1%/Epi 1:200 (30ml) 30 ML AMPUL (09:30)
--- NOTE | 2024-07-18 10:02 | PCM.POST.ANE ---
Anesthesia: Postop Eval I Current Vital Signs Temperature: 97.9 F Pulse Rate: 59 Blood Pressure: 107/52 Respiratory Rate: 10 Pulse Ox: 95 Oxygen Delivery Method: Room Air Assessment Airway patent: Yes Spontaneous unlabored respirations: Yes Mental status: Awake and Calm nausea: No Vomiting: No Anesthesia Complication: No Fluid Hydration Crystalloid volume administer (ml): 10 Total IV fluid infused: 10 Progress Note Anesthesia document: Postop Eval 1 completed: Yes
--- NOTE | 2024-07-18 10:50 | PCM.OPRPT ---
Operative Report (Standard) Operative Information Date of Procedure: 07/18/24 Pre-Operative Diagnosis: Central slip avulsion injury left long finger Post-Operative Diagnosis: Same Surgery/Procedure Performed: 1) Reconstruction of central slip avulsion injury (extensor tendon repair) (CPT: 08729) Snow Technique using suture anchor at central slip insertion implementation analyst: Yes Attendance Secretary: Gerda Triana Tasks completed by insurance legal assistant: Retracting Type of Anesthesia: MAC/Supplemental (7 cc of 50/50 mixture of 1% lidocaine and 0.25% Marcaine ) RN Documented Start/Stop Times: Operation Date: 07/18/24 08:00 Case Time Into Pre-Op 07/18/24 06:23 Out of Pre-Op 07/18/24 08:11 Anesthesia Start 07/18/24 08:13 Into Room 07/18/24 08:13 Procedure Start 07/18/24 08:32 Procedure End 07/18/24 09:54 Anesthesia End 07/18/24 09:57 Out of Room 07/18/24 09:57 Into Recovery 07/18/24 10:00 Out of Recovery 07/18/24 10:47 Into Phase II Recovery 07/18/24 10:48 Out of Phase II 07/18/24 11:45 Procedure Start Time: 08:32 Procedure Stop Time: 09:54 Select all DRAINS/GRAFTS/IMPLANTS that apply: Tissue (Biologic dressing over the incision line (not implanted) ) Tissue details: BioVance human amniotic membrane allograft placed over the incision to promote wound healing. Expiration date 22 May 2031, Lot number [id number] and Implanted device (Suture anchor) Implanted device details: Yoselyn corkscrew suture anchor 1.7 x 5 mm reference [id number], lot [id number] Estimated Blood Loss: minimal Specimen collected: No Description of surgery: Indications: Erica Mak is a delightful 69-year-old female with a left long finger central slip avulsion injury with segmental gap of EDC of approximately 1 cm. The wound was examined last week in the operating room and debrided as there was significant debris from a crush injury (necrotic fat) which was cultured. The cultures did not grow any bacteria. Patient's index finger zone for injury was repaired primarily at that time. The patient has been compliant with a volar blocking extension splint. She presents today for definitive fixation of the central slip to improve her boutonniere deformity. Procedure details: Patient was correctly identified in preoperative holding and taken back to the operating room where she was administered sedation and local anesthesia (concentration noted above), she was prepped and draped in sterile fashion, and all proper timeouts were performed before the procedure was begun. Sutures from the left long finger dorsum were removed with scissors and the wound was opened up. There was healthy tissue at the base of the wound, and there were no signs of infection. The tissue was healing well. A 15 blade scalpel was then used to cut proximally on the long finger from the ulnar side of the wound proximally towards the MCP joint. A full-thickness skin and subcutaneous tissue flap was raised off of the extensor mechanism exposing the main body of the EDC tendon. A full-thickness central flap of EDC was then designed and cut with a 15 blade scalpel from just distal to the MCP joint. This flap was flipped over itself and advanced into position over the proximal portion of the dorsal surface of P2 at the cher-ae heights central slip. A suture anchor was then taken and placed at the site of the central slip with care taken to be distal to the joint. C arm was used to confirm placement of the suture anchor. The tendon graft was then tensioned appropriately and then tied into position. We are happy with the tension as there was a normal cascade with wrist passive tenodesis and the boutonniere deformity had looked like it already corrected. The tendon was then further sutured with a cruciate pattern and the FiberWire was tied. The proximal EDC was then closed with interrupted [id number] 3-0 Ethibond suture. The wound was irrigated with copious amounts of normal saline. A single 0.35 Nell wire was then placed through the PIP joint from P2-P1 to immobilize her in extension. Closure was then performed of the soft tissue with 3-0 nylon interrupted sutures. She tolerated the procedure well and was splinted in extension with a volar blocking plaster splint. She was taken to the PACU in stable condition. Postoperative plan: Follow-up in 1 week for wound check. Doxycycline 100 mg p.o. twice daily for 1 week. Continue extension splinting. Plan for 2 weeks of immobilization with the Nell wire and then I will pull the wire and she will begin hand therapy. Surgical Findings: Healthy wound ready for reconstruction but with persistent 2 cm gap of the EDC from the terminal slip avulsion injury requiring reconstruction with the snow technique as noted above Complications Complications: No
--- NOTE | 2024-07-18 11:07 | POSTOPAN2_ITS ---
Anesthesia Postop Eval I Sum Postop Eval Completion status Anesthesia document: Postop Eval 1 completed: Yes Anesthesia Postop Eval I Summary Anesthesia Postop Eval I Summary: Anesthesia Postop Eval I: Assessment Summary Airway patent Yes 07/18/24 10:02 [email or web address] [email or web address] Spontaneous unlabored Yes 07/18/24 10:02 [email or web address] [email or web address] respirations Mental status Awake,Calm 07/18/24 10:02 [email or web address] [email or web address] nausea No 07/18/24 10:02 TRIM [email or web address] Vomiting No 07/18/24 10:02 TRIM [email or web address] Anesthesia Postop Eval I: Fluid Summary Crystalloid volume administer 10 07/18/24 10:02 TRIM [email or web address] (ml) Colloids volume administered ( ml) Blood Product volume administered (ml) Total IV fluid infused 10 07/18/24 10:02 TRIM [email or web address] Anesthesia Postop Eval I: Summary Notes Anesthesia Complication No 07/18/24 10:02 TRIM [email or web address] Anesthesia Complication Comment: Post-operative progress note Anesthesia: Postop Eval II Evaluation Mental status: Awake Pain Level: 1 nausea: No Vomiting: No
--- NOTE | 2024-07-18 11:07 | PCM.POSTANE2 ---
Anesthesia Postop Eval I Sum Postop Eval Completion status Anesthesia document: Postop Eval 1 completed: Yes Anesthesia Postop Eval I Summary Anesthesia Postop Eval I Summary: Anesthesia Postop Eval I: Assessment Summary Airway patent Yes 07/18/24 10:02 WEIGHER [email or web address] Spontaneous unlabored Yes 07/18/24 10:02 WEIGHER AND [email or web address] respirations Mental status Awake,Calm 07/18/24 10:02 WEIGHER AND [email or web address] nausea No 07/18/24 10:02 WEIGHER AND [email or web address] Vomiting No 07/18/24 10:02 WEIGHER AND [email or web address] Anesthesia Postop Eval I: Fluid Summary Crystalloid volume administer 10 07/18/24 10:02 WEIGHER AND [email or web address] (ml) Colloids volume administered ( ml) Blood Product volume administered (ml) Total IV fluid infused 10 07/18/24 10:02 WEIGHER AND [email or web address] Anesthesia Postop Eval I: Summary Notes Anesthesia Complication No 07/18/24 10:02 WEIGHER AND [email or web address] Anesthesia Complication Comment: Post-operative progress note Anesthesia: Postop Eval II Evaluation Mental status: Awake Pain Level: 1 nausea: No Vomiting: No
== END 2024-07-18 11:45 | disposition home or self-care (01) ==
LOC: SDC 06:12 → AC 06:14
PROVIDERS: PCP Nurse Practitioner Primary Care; Referring Provider Surgery Plastic and Reconstructive Surgery; Visit Provider Surgery Plastic and Reconstructive Surgery
PROC: (CPT 26426; principal; 2024-07-18 07:45)
DX: S66.325A Laceration of extensor muscle, fascia and tendon of left ring finger at wrist and hand level, initial encounter (principal); S67.191A Crushing injury of left index finger, initial encounter; X58.XXXA Exposure to other specified factors, initial encounter; I10 Essential (primary) hypertension; E78.00 Pure hypercholesterolemia, unspecified; Z79.899 Other long term (current) drug therapy
CPT/HCPCS: 26426; 01810; 73140; 76000; C1713; Q4154; A4216; J2405

== ENCOUNTER 2024-09-26 16:00 | Outpatient (RCR) | payer MEDICARE, SELFPAY ==
--- NOTE | 2024-08-07 07:52 | HP.OTEVAL ---
Patient's Visit Information Visit Information Visit Information: SULEMA TIERNEY is a 69 year old F, referred to Occupational Therapy by Dr. Nasir Cuba MD, with a diagnosis of Central sip extensor tendon ( boutonniere). Date of Evaluation: 08/02/24 Occupational Therapist: Becca Jimenez, ANDREA/Orlin, CHT Subjective Subjective: This 69-year-old female was seen for OT eval with dx of central slip extensor tendon injury (boutonniere deformity). pt underwent surgical repair on 07/18/24. pt arrives for custom orthosis to provide protection and support. Pain left hand: Current Pain Intensity: 0 Pain Intensity Range: 3 ROM PIP: left MF -10/20 DIP: left MF +15 ROM Comments: left IF PIP 0/40* left IF DIP +10/5 Left RF PIP 0/55 left RF DIP +5/10 Edema PIP: right MF 6.5 left 7.5 Goals Goal:100% adherence to protocol: Yes Comment: central slip repair extensor tendon guidelines Goal:Daily scar massage when approriate: Yes Goal:ROM equal to unaffected hand: Yes Goal:Bilingual Kindergarten Teacher/Pinch strength at least 75% of unaffected hand: Yes Goal:No pain with affected hand use: Yes Goal:PIP Circumferences equal to unaffected hand: Yes Goal:Full use of affected hand in daily activities including work: Yes Goal:Decrease scar hypersensitivity: Yes Rehabilitation General Assessment: pt arrives to session s/p 2 weeks and 1 days s/p from reconstruction of central slip extensor tendon (snow Technique using suture anchor and central slip insertion. Pt currently is limited with use of left hand with ADLs and IADLs. Pt demo need for skilled OT services 1-2x week for 6-8 weeks. Today therapist domenic. custom orthosis for pt to use while newly reconstructed structures heal. ( one placing finger in full ext. another allowing for exercise of DIP- and another exercise splint that allows for PIP flexion to 30* pt was instructed to make sure she Bends finger and fully extends finger during ex) therapsit also ed. pt at any sign of PIP extensor lag we will make adj to her POC. pt demo understanding and agree to POC. Rehabilitation Potential: Good Anticipated Interventions Anticipated Interventions: A/AAROM/PROM, Strengthening, Edema Control, Scar Care, Triggerpoint Release, Modalities, Orthoses, Joint Protection/Energy Conservation, ADL Training, Education re assistive Equipment, Caregiver Training and Home Program Visit Plan Frequency: 1-2x /Week Duration: 2 Months TEXT: Thank you for the opportunity to evaluate your patient. For Medicare and Medicare HMO plans, please review the plan of care and approve it. It will need to be FAXED BACK to us at [phone] for Medicare purposes. Please let me know if there are questions or concerns regarding this plan of care. Physician Signature: Date:
--- NOTE | 2024-09-04 09:48 | HP.OTREVAL ---
Re-Evaluation Intro: Dr. Nasir Cuba MD, It has been my pleasure to treat SULEMA TIERNEY over the last 7 visits for Central sip extensor tendon ( boutonniere). Please see the progress note below for an update on the occupational therapy plan of care! Subjective Subjective: pt arrives 5 weeks and 6 days- missed week of therapy last week due to illness and being called into work. Objective Objective/Function: IF PIP ROM 0/80* MF PIP -30/ 76* DIP +15/ 15 Pt demo with extensor lag of MF- ( questioning scar adhesions) pt has relative motion splint to decrease MP hyper ext and allow for PIP flexion - pt ed. to use gutter splint at night due to extensor lag- therapist will ed. pt on use of kinesis tape to support extension of MF PIP. all other digits are moving well- MF demo with boutonniere deformity of MF PIP passive can be reduced to full ext. Plan Plan Frequency: 1-2x /Week Duration: 2 Months Plan: cont with AROM splint to decrease boutonniere deformity Goals Goals Patient Goals: Regain Mobility and Use Hand/Wrist/Arm Normally Again Goal:100% adherence to protocol: Yes Goal:Daily scar massage when approriate: Yes Goal:ROM equal to unaffected hand: Yes Goal:Bilingual Manager/Pinch strength at least 75% of unaffected hand: Yes Goal:No pain with affected hand use: Yes Goal:PIP Circumferences equal to unaffected hand: Yes Goal:Full use of affected hand in daily activities including work: Yes Goal:Decrease scar hypersensitivity: Yes Anticipated Interventions Anticipated Interventions Anticipated Interventions: A/AAROM/PROM, Strengthening, Edema Control, Scar Care, Triggerpoint Release, Modalities, Orthoses, Joint Protection/Energy Conservation, ADL Training, Education re assistive Equipment, Caregiver Training and Home Program Re-Evaluation Ending Re-evaluation ending: Please do not hesitate to contact me at [phone] by phone or if you have questions or concerns regarding this new plan of care! Sincerely, Becca Jimenez, ANDREA/L, CHT
--- NOTE | 2024-09-26 16:12 | HP.OTREVAL ---
Re-Evaluation Intro: Dr. Nasir Cuba MD, It has been my pleasure to treat SULEMA TIERNEY over the last 10 visits for Central sip extensor tendon ( boutonniere). Please see the progress note below for an update on the occupational therapy plan of care! Subjective Subjective: 9 weeks out today still using LMB and doing well with exercises. using vitamin E and vasoline at home along with the stretching. has another f/u appt with meg 10/05. no issues at work, back to normal at home with ADLS/IADLS, yard work. Objective Objective/Function: re-evaluation summary: rate of improvement 95% DASH score 2% no pain to report, back to full indep at home with ADLs/IADLS/housework/yard work pt reporting no difficulty or limitations with anything at this time IF PIP 77 MF PIP 74 MF DIP +10 hyperextension consistent with doing her exercises and LMB Plan Plan Frequency: 1-2x /Week Duration: 2 Months Plan: f/u with meg to determine if he wants her to return, not scheduling additional sessions at this time d/t progress made Goals Goals Patient Goals: Regain Mobility and Use Hand/Wrist/Arm Normally Again Goal:100% adherence to protocol: Yes Goal:Daily scar massage when approriate: Yes Goal:ROM equal to unaffected hand: Yes Goal:Central Supply Tech/Pinch strength at least 75% of unaffected hand: Yes Goal:No pain with affected hand use: Yes Goal:PIP Circumferences equal to unaffected hand: Yes Goal:Full use of affected hand in daily activities including work: Yes Goal:Decrease scar hypersensitivity: Yes Anticipated Interventions Anticipated Interventions Anticipated Interventions: A/AAROM/PROM, Strengthening, Edema Control, Scar Care, Triggerpoint Release, Modalities, Orthoses, Joint Protection/Energy Conservation, ADL Training, Education re assistive Equipment, Caregiver Training and Home Program Re-Evaluation Ending Re-evaluation ending: Please do not hesitate to contact me at [phone] by phone or if you have questions or concerns regarding this new plan of care! Sincerely, Debra Ramsey
--- NOTE | 2025-01-01 16:05 | HP.OT.NRP ---
Patient Information Patient Information: SULEMA TIERNEY was seen in my office for initial evaluation on 08/02/24. The following Plan of Care was established for this patient: POC Established Initial Frequency: 1-2x /Week Initial Duration: 2 Months Plan: f/u with meg to determine if he wants her to return, not scheduling additional sessions at this time d/t progress made Anticipated Interventions Anticipated Interventions: A/AAROM/PROM, Strengthening, Edema Control, Scar Care, Triggerpoint Release, Modalities, Orthoses, Joint Protection/Energy Conservation, ADL Training, Education re assistive Equipment, Caregiver Training and Home Program Last Seen Last Seen: This patient was last seen in our office 09/26/24. Pertinent comments regarding their Occupational therapy will appear below: no further apts have been scheduled and due to time lapse in services pt is d/c at this time. At this point I will be discontinuing this patient from occupational therapy. I would be happy to see this patient again in the future if found appropriate by the physician. Thank you! Becca Jimenez, OTR/L, CHT
== END 2024-09-26 19:00 | disposition home or self-care (01) ==
LOC: OT 16:00
PROVIDERS: PCP Nurse Practitioner Primary Care; Referring Provider Surgery Plastic and Reconstructive Surgery; Visit Provider Surgery Plastic and Reconstructive Surgery
DX: M20.029 Boutonniere deformity of unspecified finger(s) (principal)
CPT/HCPCS: 97110; 97140; 97165; 97530